=== PATIENT | male | born 1955 | race American Indian/Alaskan Native ===

== ENCOUNTER 2018-09-22 17:32 | Inpatient (IN) | payer MEDICARE, OTHER ==
[2018-09-22] MEDS ORDERED: D50W (25GM) Syringe IV PRN (22:11)
[2018-09-22] MEDS: PEPCID PO SCH (23:16)
--- NOTE | 2018-09-22 23:56 | Event Note ---
Date: 09/22/[address] Carlson service Orders reviewed
[2018-09-23 05:09] LABS: Basophils % (Auto) 0.8 % (0.0-1.8); Eosinophils # (Auto) 0.2 K/mm3 (0.0-0.4); Eosinophils % (Auto) 3.4 % (0.0-4.3); Hematocrit 44.1 % (35.5-45.6); Hemoglobin 14.4 gm/dl (11.8-15.2); Lymphocytes # (Auto) 1.9 K/mm3 (1.2-5.4); Lymphocytes % (Auto) 33.9 % (13.4-35.0); Mean Corpuscular HGB Conc 33 % (32-34); Mean Corpuscular Volume 93 fl (84-94); Monocytes # (Auto) 0.6 K/mm3 (0.0-0.8); Monocytes % (Auto) 9.9 % (0.0-7.3); Red Blood Count 4.77 M/mm3 (3.65-5.03); Red Cell Distribution Width 15.6 % (13.2-15.2)
[2018-09-23 05:18] LABS: Platelet Count 68 K/mm3 (140-440)
[2018-09-23 05:23] LABS: INR 0.9 (0.87-1.13)
[2018-09-23 05:31] LABS: BUN/Creatinine Ratio 22; Blood Urea Nitrogen 13 mg/dL (9-20); Calcium 8.9 mg/dL (8.4-10.2)
[2018-09-23 05:32] LABS: Hemolysis Index 35
[2018-09-23] MEDS: ENTRESTO 24 - 26 MG PO SCH ×3 (05:51→22:29)
[2018-09-23] MEDS: HumaLOG SUB-Q SCH ×4 (08:00→22:21)
[2018-09-23] MEDS: LASIX PO SCH (09:32)
[2018-09-23] MEDS: HALFPRIN EC PO SCH (09:32)
[2018-09-23] MEDS: ALDACTONE PO SCH (09:32)
[2018-09-23] MEDS: PEPCID PO SCH ×2 (09:32→22:20)
[2018-09-23] MEDS: LOVENOX SUB-Q SCH ×2 (09:33→22:20)
[2018-09-23] MEDS ORDERED: COUMADIN PO SCH (10:00)
--- NOTE | 2018-09-23 11:15 | History and Physical Report ---
History of Present Illness Date: 09/23/18 Date of admission: 09/22/18 18:49 Chief Complaint: CVA History of present illness: 62 yo male with right sided weakness and slurred speech went to ER and was found to have multiple acute left infarcts and a few smaller right sided infarcts on MRI brain. Echo showed 15-20% EF with moderate concentric hypertrophy and a dilated chamber. Neck CTA showed 90-95% stenosis on left carotid bulb and internal carotid artery. Decision was made to anticoagulate and monitor vs intervention. He was started on heparin drip and transferred to [facility] and coumadin on day of transfer. After he was medically stabilized he was transferred for further rehab. All available notes, images, therapy notes, labs and vitals were reviewed. Past History Past Medical History: heart failure, hypertension, other (CKD, RA, hyperglycemia, cardiomyopathy, cirrhosis) Past Surgical History: No surgical history Social history: lives with family, smoking (former), full code, other (Former EtOH use, Denies illicit drug use) Family history: hypertension Medications and Allergies Allergies Allergy/AdvReac Type Severity Reaction Status Date / Time No Known Allergies Allergy Unverified 09/16/18 03:39 Home Medications Medication Instructions Recorded Confirmed Last Taken Type Tamsulosin HCl 0.4 mg PO QHS 09/17/18 09/23/18 09/22/18 21:00 History 0.4 Aspirin EC [Aspirin Enteric Coated 81 mg PO QDAY #30 tablet. 09/22/18 09/23/18 Unknown Rx TAB] AtorvaSTATin [Lipitor] 40 mg PO QHS tablet 09/22/18 09/23/18 Unknown Rx Enoxaparin Sodium [Lovenox] 100 mg SQ BID 7 Days syringe 09/22/18 09/23/18 Unknown Rx Famotidine [Pepcid] 20 mg PO BID tablet 09/22/18 09/23/18 Unknown Rx Furosemide [Lasix TAB] 40 mg PO QDAY tablet 09/22/18 09/23/18 Unknown Rx Lispro Insulin [Humalog] 0 unit SUB-Q ACHS units 09/22/18 09/23/18 Unknown Rx Metoprolol Xl [Metoprolol 50 mg PO QDAY tablet 09/22/18 09/23/18 Unknown Rx SUCCINATE ER TAB] Sacubitril/Valsartan [Entresto 24 4 each PO BID 30 Days tablet 09/22/18 09/23/18 Unknown Rx - 26 mg] Spironolactone [Aldactone] 25 mg PO QDAY 30 Days tablet 09/22/18 09/23/18 Unknown Rx Active Meds: Active Medications Aspirin (Halfprin Ec) 81 mg PO QDAY [facility] Last Admin: 09/23/18 09:32 Dose: 81 mg Documented by: Atorvastatin Calcium (Lipitor) 40 mg PO QHS [facility] Dextrose (D50w (25gm) Syringe) 50 ml IV PRN PRN PRN Reason: Hypoglycemia Enoxaparin Sodium (Lovenox) 100 mg SUB-Q BID [facility] Last Admin: 09/23/18 09:33 Dose: 100 mg Documented by: Famotidine (Pepcid) 20 mg PO BID [facility] Last Admin: 09/23/18 09:32 Dose: 20 mg Documented by: Furosemide (Lasix) 40 mg PO QDAY [facility] Last Admin: 09/23/18 09:32 Dose: 40 mg Documented by: Insulin Human Lispro (Humalog) 0 unit SUB-Q [facility]; Protocol Last Admin: 09/23/18 08:00 Dose: Not Given Documented by: Metoprolol Succinate (Toprol Xl) 50 mg PO QDAY [facility] Pneumococcal Polyvalent Vaccine (Pneumovax 23) 0.5 ml IM .ONCE ONE Stop: 09/23/18 12:01 Spironolactone (Aldactone) 25 mg PO QDAY [facility] Last Admin: 09/23/18 09:32 Dose: 25 mg Documented by: Tamsulosin HCl (Flomax) 0.4 mg PO QHS [facility] Warfarin Sodium (Coumadin) 7.5 mg PO DAILY@1700 [facility] Review of Systems All systems: negative (Negative except as noted below) Constitutional: weakness Ears, nose, mouth and throat: decreased hearing, no dysphagia Cardiovascular: no chest pain, no rapid/irregular heart beat, no shortness of breath Respiratory: no cough, no congestion Gastrointestinal: no abdominal pain, no nausea, no vomiting, no diarrhea, no constipation Genitourinary Male: incontinence Rectal: incontinence Musculoskeletal: gait dysfunction Integumentary: unusual bruising (heparin IV sites), no rash Neurological: change in speech, balance difficulties, gait dysfunction, paralysis Psychiatric: no confusion, no sadness/tearfullness, no mood swings Exam - Exam Narrative exam: MUSCULOSKELETAL SPECIALTY EXAM Constitutional: Well developed, well nourished, appropriately groomed, RHD Lymphatic: No appreciable abnormalities palpable in neck EENT: Visual carter full to confrontation. EOMI. Oropharynx clear. Hearing intact to finger rustle, slightly impaired on left (uncertain if prior issue) Respiratory: Clear to ascultation bilaterally, no increased work of breathing. Cardiovascular Regular Rate/ Rhythm, no swelling edema or tenderness in all 4 extremities. Pulses palpable in all 4 extremities. All 4 extremities warm. GI : + bowel sounds, soft, NTTP, nondistended INTEGUMENTARY Normal in all 4 extremities other than bruising from IVs Musuloskeletal BUE and BLE normal without defect, crepitus, sublux, effusion, or TTP. Noted LUE hematoma - monitor RUE 0/5 except for slight movement in digits 1& 2 decreased aROM. RLE 4-/5, good ROM LUE and LLE 4+/5, good ROM with normal tone. NEURO: Right facial droop, CN 2-12 grossly intact otherwise. Sensation intact in all extremities without extinction. Reflexes 3+ on right on 2+ on left at biceps, brachioradialis and patella. No clonus at b/l ankle. Coordination intact on left, unable to test on right. No tremor noted. Mild aphasia and dysarthria. Naming and repetition intact with some mild word searching during conversation. POSTURE and GAIT: Deferred until seen with therapy for safety PSYCH: Alert, orientated x3, affect appears slightly flattened. Insight appears intact. - Constitutional Vitals: Vital Signs - 12hr 09/23/18 09/23/18 00:19 07:29 Temperature 36.4 C 36.8 C Pulse Rate 73 82 Respiratory 22 18 Rate Blood Pressure 167/101 146/89 O2 Sat by Pulse 96 98 Oximetry - Labs CBC & Chem 7: 09/23/18 04:35 09/23/18 04:35 Labs: Laboratory Results - last 72 hr 09/22/18 09/23/18 09/23/18 21:42 04:35 04:35 WBC 5.7 RBC 4.77 Hgb 14.4 Hct 44.1 MCV 93 MCH 30 MCHC 33 RDW 15.6 H Plt Count 68 L Lymph % (Auto) 33.9 [place] % (Auto) 9.9 H Eos % (Auto) 3.4 Baso % (Auto) 0.8 Lymph # 1.9 [place] # 0.6 Eos # 0.2 Baso # 0.0 Seg Neutrophils % 52.0 Seg Neutrophils # 3.0 PT INR Sodium 138 Potassium 3.8 Chloride 104.7 Carbon Dioxide 25 Anion Gap 12 BUN 13 Creatinine 0.6 L Estimated GFR > 60 BUN/Creatinine Ratio 22 Glucose 90 POC Glucose 126 H Calcium 8.9 09/23/18 09/23/18 04:35 07:31 WBC RBC Hgb Hct MCV MCH MCHC RDW Plt Count Lymph % (Auto) [place] % (Auto) Eos % (Auto) Baso % (Auto) Lymph # [place] # Eos # Baso # Seg Neutrophils % Seg Neutrophils # PT 12.5 INR 0.90 Sodium Potassium Chloride Carbon Dioxide Anion Gap BUN Creatinine Estimated GFR BUN/Creatinine Ratio Glucose POC Glucose 92 Calcium Assessment and Plan Assessment and plan: Patient was assessed and evaluated for Acute Inpatient Rehab Unit. Due to the patients above-mentioned medical complexity, along with decreased functional mobility and self care, this patient continues to require and be appropriate for a comprehensive, multidisciplinary [id number] rehab ilitation program. These needs cannot be met in an outpatient or other less intensive setting. The patient would continue to benefit from skilled therapy intervention for at least 3 hours per day, five days a week, with techniques specific to the needs of the patient to improve function, activities of daily living, and reintegration into the community. The patient continues to require: -- OT to improve ROM, self-care, and learn use of adaptive equipment -- PT to improve strength and balance, functional transfers, and ambulation -- BANANA EXPERT to evaluate and treat cognitive decline and dysphagia -- 24 hour RN to ensure and prevent skin breakdown, promote progressive independence while ensuring safety, ensure education regarding medications, and incorporation of the rehabilitation at the bedside -- 24 hour Warehouse Operations Associate to coordinate this interdisciplinary program, and to manage/prevent complications as a result of the patients medical comorbidities. -Plan of care by day 4 -Weekly team conferences With such a program, there is a reasonable certainty that the goals individualized for this patient can be achieved within the specified length of stay. I69.351 Right dom hemiparesis: Monitor for neuro decline. Continue secondary stroke prevention. Discussed recovery and secondary stroke prevention. Monitor for post-stroke depression and s/s of shoulder-hand syndrome. I69.310 Cognitive deficits after CVA: BANANA EXPERT to monitor and provide strategies for compensation, family training for increased monitoring. I69.321 Dysphasia: BANANA EXPERT to continue to work to improve communication skills with alternate methods as needed I69.322 Dysarthria: BANANA EXPERT to work with strategies to improve NM control while speaking Z73.6 ADL dysfunction: OT will work on improving ability to perform ADLs (including assistive devices) to increase independence and decrease caregiver burden and improve functional transfers and mobility training. R26.2 Difficulty walking: PT will work on gait training and proper use of as sistive devices and advance as appropriate to use of stairs and outside ambulation on uneven surfaces. R26.81 Unsteadiness on feet: PT will work on improving static and dynamic sitting and standing balance as well as proper use of assistive devices to decrease risk of falls. R26.89 Abnormality of gait: PT will work to improve safety and efficiency of gait through neuromotor training and gait training along with instruction on proper use of assistive devices. M62.81 Muscle weakness: PT & OT will work on strengthening exercises to improve functional strength including mixture of closed and open kinetic chain exercises. R53.81 Debility: PT & OT will work on improving overall functional status to improve participation with ADLs, mobility and social involvement. R53.83 Fatigue: PT & OT will work on improving endurance through aerobic exercises and therapeutic activity while monitoring patients tolerance for activity and vital signs as needed. I10 Hypertension:Monitor BP and adjust medications as needed for normotension Z79.01 Coumadin monitoring: Goal INR 2-3, continue lovenox until therapeutic. Heparin drip d/c'd at admission. DVT ppx: on lovenox awaiting therapeutic INR Pain: Continue physical modalities in therapy and pain medications as needed to achieve functional pain control. Sleep: Monitor and address as needed. Bowel: Monitor and address as needed. Appetite: Monitor and address as needed. Discharge planning: Pending therapy progress and care plan meeting. Justyn castillo discussion with therapy team, SW, patient and family. Restrictions/ Precautions: Falls WB status: FWB Functional Hx: ADLs: Independent Cognition: Independent Mobility: independent Barriers to Discharge: Decreased mobility and ability to perform self care, right sided weakness, slight aphasia, balance deficits Estimated Length of Stay: 14-21 days Discharge Destination: Home with family POST ADMISSION PHYSICIAN EVALUATION I have examined the patient and find that his functional status, medical condition and appropriateness for IRF admission are essentially unchanged from those described in the preadmission screening. Will monitor for worsening neurological condition, complications due to hypertension and hyperglycemia, worsening cardiac function, CKD and complication of liver function and electrolyte abnormalities. Will attempt to avoid occurrence of these issues or treat them if they present themselves.
[2018-09-23] MEDS ORDERED: PNEUMOVAX 23 IM ONE (12:00)
[2018-09-23] MEDS: TOPROL XL PO SCH (12:41)
[2018-09-23] MEDS ORDERED: DULCOLAX PR PRN (14:42)
[2018-09-23] MEDS ORDERED: MIRALAX 3350 PO PRN (14:42)
[2018-09-23] MEDS ORDERED: TYLENOL PO PRN (14:42)
[2018-09-23] MEDS: COUMADIN PO SCH (17:03)
[2018-09-23] MEDS ORDERED: NON-FORMULARY (Tamsulosin Hcl 0.4 MG) PO SCH (21:00)
[2018-09-23] MEDS: FLOMAX PO SCH (22:20)
[2018-09-23] MEDS: DESYREL PO PRN (22:28)
[2018-09-24 07:16] LABS: INR 1.02 (0.87-1.13)
[2018-09-24] MEDS: HumaLOG SUB-Q SCH ×4 (08:30→21:29)
[2018-09-24] MEDS: ENTRESTO 24 - 26 MG PO SCH ×2 (09:02→21:28)
[2018-09-24] MEDS: HALFPRIN EC PO SCH (09:04)
[2018-09-24] MEDS: LOVENOX SUB-Q SCH ×2 (09:04→21:28)
[2018-09-24] MEDS: ALDACTONE PO SCH (09:04)
[2018-09-24] MEDS: PEPCID PO SCH ×2 (09:04→21:28)
[2018-09-24] MEDS: TOPROL XL PO SCH (12:30)
[2018-09-24] MEDS: LASIX PO SCH (12:31)
[2018-09-24] MEDS: COUMADIN PO SCH (17:07)
[2018-09-24] MEDS: FLOMAX PO SCH (21:28)
[2018-09-24] MEDS: DESYREL PO PRN (21:31)
[2018-09-25 04:47] LABS: INR 1.22 (0.87-1.13)
[2018-09-25] MEDS: HumaLOG SUB-Q SCH ×4 (08:00→22:00)
[2018-09-25] MEDS: LOVENOX SUB-Q SCH ×2 (09:12→22:39)
[2018-09-25] MEDS: LASIX PO SCH (09:13)
[2018-09-25] MEDS: ENTRESTO 24 - 26 MG PO SCH ×2 (09:13→22:45)
[2018-09-25] MEDS: ALDACTONE PO SCH (09:14)
[2018-09-25] MEDS: HALFPRIN EC PO SCH (09:14)
[2018-09-25] MEDS: PEPCID PO SCH ×2 (09:14→22:39)
[2018-09-25] MEDS: TOPROL XL PO SCH (09:14)
[2018-09-25] MEDS: COUMADIN PO SCH (17:56)
[2018-09-25] MEDS: FLOMAX PO SCH (22:38)
--- NOTE | 2018-09-25 23:10 | IRU Plan of Care ---
Interdisciplinary Plan of Care - IP IRU INTERDISCIPLINARY PLAN: [facility] Inpatient Rehab Unit Plan of Care IRU Interdisciplinary Care Plan Start: 09/22/18 20:07 Freq: Admission then PRN Status: Active Protocol: Document 09/25/18 09:22 TH (Rec: 09/25/18 09:25 TH [id number]) Interdisciplinary Problem List Interdisciplinary Problem List Interdisciplinary Problem List Impaired Bathing/Grooming Query Text:Answers will Trigger Problems Impaired Dressing and Outcomes on Worklist. Impaired Mobility Impaired Transfers Impaired Bladder/Bowel Management Impaired Toileting Impaired Problem Solving Knowledge Deficits Impaired Home Management Impaired Safety Medications Education Diabetes Education IRU Interdisciplinary Care Plan Therapy Services Therapy Services Will Include: Physical Therapy Query Text:Patient will be seen for a Occupational Therapy minimum of 3 hours of daily therapy 5 out of 7 days a week. Therapy intensity may be adjusted within a 7 consecutive day period to effectively serve the individual needs of the patient. Treatment Frequency/Intensity/Duration Treatment Frequency 5 days per week Treatment Intensity 3 hours/day Treatment Duration 14-21 days Problem Area: Eating/Swallowing Eating/Swallowing Outcomes Eating/Swallowing Interventions Problem Area: Bathing/Grooming Bathing/Grooming Outcomes Improve [place] w/ Grooming Improve [place] w/ Bathing Bathing/Grooming Interventions ADL Training Use of Assistive Devices Therapeutic Exercise Therapeutic Activity Neuromuscular Re-Education Balance Work Activity Tolerance Work Patient/Caregiver Education Problem Area: Dressing Dressing Outcomes Improve [place] w/ UB Dressing Improve [place] w/ LB Dressing Dressing Interventions ADL Training Use of Assistive Devices Neuromuscular Re-Education Therapeutic Exercise Balance Work Modalities Patient/Caregiver Education Problem Area: Mobility Mobility Outcomes Improve [place] w/ Bed Mobility Improve [place] w/ Ambulation Improve [place] w/ Stairs /Curb Improve [place] w/ Wheelchair Mobility Interventions Therapeutic Exercise Neuromuscular Re-Ed. Activity Tolerance Work Use of Assistive Devices Patient/Caregiver Education Bed Mobility Work Gait Training W/C Mobility Work Problem Area: Transfers Transfers Outcomes Improve [place] w/ Bed Transfers Improve [place] w/ Toilet Transfers Improve [place] w/ Tub/ Shower Transfers Improve [place] w/ Car Transfers Transfers Interventions Transfer Training Therapeutic Exercise Neuromuscular Re-Education Activity Tolerance Work Use of Assistive Devices Patient/Caregiver Education Problem Area: Bowel/Bladder Managment Bowel/Bladder Outcomes Continent of Bladder Continent of Bowel Bowel/Bladder Interventions Bowel Training Program Use of Assistive Devices Education for Assistive Devices (Ostomy, Cath) Medication Education Patient/Caregiver Education Problem Area: Toileting Toileting Outcomes Improve [place] w/ Toileting Toileting Interventions ADL Training Patient/Caregiver Education Problem Area: Nutrition Nutrition Outcomes Nutrition Interventions Problem Area: Comprehension Comprehension Outcomes Comprehension Interventions Problem Area: Expression Expression Outcomes Expression Interventions Problem Area: Problem Solving Problem Solving Outcomes Improve Problem Solving Problem Solving Interventions Safety Education Patient/Caregiver Education Problem Area: Memory Memory Outcomes Use Memory Aids Memory Interventions Cognitive Training Review of Precautions Patient/Caregiver Education Problem Area: Pain Management Pain Management Outcomes Demonstrate/Verbalize Pain Strategies Pain Management Interventions Medication Management Patient/Caregiver Education Problem Area: Knowledge Deficits Knowledge Deficits Outcomes Verbalize Precautions Knowledge Deficits Interventions Disease/Injury/Sx. Intervention Education Medication Use Education Disease Management Education Health Maintainence Education Safety Education Problem Area: Skin/Tissue Integrity Skin/Tissue Integrity Outcomes Demonstrate Understanding of Pressure Relief Skin/Tissue Integrity Interventions Pressure Relief Instruction Positioning/Turning Problem Area: Social Interaction Social Interaction Outcomes Social Interaction Interventions Problem Area: Adjustment to Disability Adjustment to Disability Outcomes Adjustment to Disability Interventions Problem Area: Discharge Concerns Discharge Concerns Outcomes Discharge Concerns Interventions Problem Area: Community Reintegration Community Reintegration Outcomes Community Reintegration Interventions Problem Area: Home Management Home Management Outcomes Improve [place] w/ Home Management Home Management Interventions Clothing Care Activity Tolerance Work Patient/Caregiver Education Problem Area: Safety Safety Outcomes Provide Safe Environment Perform Selfcare Safely Demonstrate Good Safety w/ Transfers/Mobility Safety Interventions Identify Fall Risk [place] Pt. to Environment Reduce Environmental Hazards Implement Mechanical Devices, i.e. Chair Alarm (Post Fall Update) Re-Educate Patient/Caregiver for Safety (Post Fall Update) Problem Area: Medication Education Medication Education Outcomes Patient/Caregiver will Verbalize Understanding of Medications Medication Education Interventions Explain Administration/Side Effects/Interactions Problem Area: Diabetes Education Diabetes Education Outcomes Demonstrate Knowledge of Resources Availlable in Diabetic Ed. Folder Diabetes Education Interventions Give Pt. Diabetes Education Folder Discuss Pathophysiology of Diabetes Problem Area: Oxygenation Oxygenation Outcomes Oxygenation Interventions Problem Area: Cardiovascular Cardiovascular Outcomes Cardiovascular Interventions Physician Only Medical Prognosis and Rehabilitation Potential (Completed by Physician) Fair prognosis. Will continue to monitor and treat for CVA related issues including hemiparesis, ADL dysfunction, bowel and bladder dysfunction, and mobility dysfunction. Will monitor and adjust medications as needed for treatment of medical conditions and look to reduce impact of those conditions on participation in rehabilitation. Patient is at risk for cardiac decompensation, repeat embolus, and bleeding. This plan of care has been developed based on the findings from the pre- admission assessment, post admission physician evaluation, information gathered from the assessments from all therapy disciplines and other pertinent clinicians. The plan of care has been reviewed and discussed in collaboration with the interdisciplinary team. The plan of care will be reviewed and updated at least weekly.
[2018-09-26 05:03] LABS: INR 1.59 (0.87-1.13)
--- NOTE | 2018-09-26 09:50 | Progress Note ---
Subjective Date of service: 09/26/18 Principal diagnosis: CVA Interval history: 62 yo male with CVA (right sided weakness UE>LE) found to have multiple acute left infarcts and a few smaller right sided infarcts on MRI brain. Echo showed 15-20% EF with moderate concentric hypertrophy and a dilated chamber. Neck CTA showed 90-95% stenosis on left carotid bulb and internal carotid artery. Having multiple stools. Not c/w c diff. Sensation is improved and he states he now recognizes the urge to urinate and defecate. Not wearing condom cath. Will have nursing utilize toilet instead of bedpan. Discussed elevated A1c. Reviewed labs and his LFTs and coags were normal on presentation. Will start on low dose metformin and monitor. INR still subtherapeutic. Not picked up by CONFECTIONERY MAKER, dysarthria and dysphasia both very mild. All available notes, images, therapy notes, labs and vitals were reviewed. Objective - Exam Narrative Exam: MUSCULOSKELETAL SPECIALTY EXAM Constitutional: Well developed, well nourished, appropriately groomed, RHD EENT: EOMI. Hearing intact to finger rustle, slightly impaired on left (uncertain if prior issue) Respiratory: Clear to ascultation bilaterally, no increased work of breathing. Cardiovascular Regular Rate/ Rhythm, no swelling edema or tenderness in all 4 extremities. All 4 extremities warm. GI : + bowel sounds, soft, NTTP, nondistended INTEGUMENTARY Normal in all 4 extremities other than bruising from IVs Musuloskeletal BUE and BLE normal without defect, crepitus, sublux, effusion, or TTP. Noted LUE hematoma stable - monitor RUE 0/5 except for slight movement in digits 1& 2 decreased aROM. RLE 4-/5, good ROM LUE and LLE 4+/5, good ROM with normal tone. NEURO: Right facial droop, CN 2-12 grossly intact otherwise. Sensation intact in all extremities without extinction. No tremor noted. Mild dysarthria. Naming and repetition intact with some mild word searching during conversation. POSTURE and GAIT: Walking with SPC, able to navigate stairs with assistance. Posture fair PSYCH: Alert, orientated x3, affect appears slightly flattened. Insight appears intact. - Constitutional Vitals: Vital Signs - 12hr 09/25/18 09/26/18 09/26/18 23:57 04:03 08:40 Temperature 36.6 C 36.8 C 36.4 C Pulse Rate 69 81 73 Respiratory 18 18 18 Rate Blood Pressure 131/85 129/81 Blood Pressure 159/94 [Left] O2 Sat by Pulse 98 96 96 Oximetry - Allied health notes Allied health notes reviewed: nursing, PT, OT FIMS assessment as documented by PT/OT/ST: Grooming Patient cleans teeth/dentures: Yes Patient tellez/brushes hair: Yes Patient washes, rinses and Yes dries face: Patient performs (no make-up/ 3/4 (75%) shaving): Grooming FIM Score 4. Minimal Assistance (Patient = 75% or more. Needs touching.) Toileting Toileting Device Commode over Toilet Patient able to: Adjust clothes before,Adjust clothes after Patient able to perform: 1/3 (33%) Toileting FIM Score 1. Total Assistance (Patient less than 25%. 2 or more persons.) Social interaction/Memory/Problem solving Social Interaction FIM Score 6. Mod. [place] (Mostly appropriate. May need meds. No supv.) Memory FIM Score 5. Supervision (Needs cueing <10%, stressful/ unfamiliar situations.) Problem Solving FIM Score 4. Minimal Assistance (Solves routine problems 75-90%.) Transfers Mode of Locomotion: Wheelchair Bed/Chair/Wheelchair Transfers 4. Minimal Assistance (Patient = 75% or more. FIM Score Needs touching.) Toilet Transfers FIM Score 4. Minimal Assistance (Patient = 75% or more. Needs touching.) Patient transferred to: Shower Shower Transfers FIM Score 4. Minimal Assistance (Patient = 75% or more. Needs touching.) Locomotion- Stairs Device used on Stairs Handrail/s Number of Stairs Ascended/ 4 Descended Patient used handrail/support: Yes Stairs FIM Score 2. Maximal Assistance (Patient = 25% or more, 4- 6 stairs.) Locomotion- walk/wheelchair Most Frequent Mode of Wheelchair Locomotion: Ambulation Distance 170 Walking FIM Score 4. Minimal Assistance (Patient = 75% or more. Minimum of 150 ft.) Wheelchair Propulsion Distance 127 Wheelchair FIM Score 2. Maximal Assistance (Patient = 25% or more. Minimum of 50 ft.) Eating Eating FIM Score 5. Supervision/Set-Up (Needs help w/ co ntainers, cutting meat, etc.) Dressing-Upper body Patient retrieves clothing No items: Patient applies/removes UE Yes: sling and arm troph prosthesis or orthosis: Upper Body Dressing FIM Score 4. Minimal Assistance (Patient = 75% or more. Needs touching.) Dressing-lower body Patient retrieves clothing No items: Patient applies/removes LE n/a prosthesis or orthosis: Lower Body Dressing FIM Score 2. Maximal Assistance (Patient = 25% or more) - Labs CBC & Chem 7: 09/23/18 04:35 09/23/18 04:35 Labs: Laboratory Results - last 72 hr 09/23/18 09/23/18 09/23/18 12:07 16:30 17:23 PT INR POC Glucose 164 H 61 L 140 H 09/23/18 09/24/18 09/24/18 21:19 03:52 06:45 PT 13.8 INR 1.02 POC Glucose 66 L 95 09/24/18 09/24/18 09/24/18 07:46 12:05 16:12 PT INR POC Glucose 96 167 H 192 H 09/24/18 09/25/18 09/25/18 21:31 04:22 07:16 PT 15.8 H INR 1.22 H POC Glucose 105 89 09/25/18 09/25/18 09/25/18 12:34 16:02 22:00 PT INR POC Glucose 71 130 H 157 H 09/26/18 09/26/18 04:04 08:49 PT 19.4 H INR 1.59 H POC Glucose 133 H Assessment and Plan I69.351 Right dom hemiparesis: Monitor for neuro decline. Continue secondary stroke prevention. Discussed recovery and secondary stroke prevention. Monitor for post-stroke depression and s/s of shoulder-hand syndrome. I69.310 Cognitive deficits after CVA: Improving. CONFECTIONERY MAKER did not sweet pickle maker patient I69.321 Dysphasia: Improving, CONFECTIONERY MAKER did not sweet pickle maker patient I69.322 Dysarthria: Improving Z73.6 ADL dysfunction: OT will work on improving ability to perform ADLs (including assistive devices) to increase independence and decrease caregiver burden and improve functional transfers and mobility training. R26.2 Difficulty walking: PT will work on gait training and proper use of assistive devices and advance as appropriate to use of stairs and outside ambulation on uneven surfaces. R26.81 Unsteadiness on feet: PT will work on improving static and dynamic sitting and standing balance as well as proper use of assistive devices to decrease risk of falls. R26.89 Abnormality of gait: PT will work to improve safety and efficiency of gait through neuromotor training and gait training along with instruction on proper use of assistive devices. M62.81 Muscle weakness: PT & OT will work on strengthening exercises to improve functional strength including mixture of closed and open kinetic chain exercises. R53.81 Debility: PT & OT will work on improving overall functional status to improve participation with ADLs, mobility and social involvement. R53.83 Fatigue: PT & OT will work on improving endurance through aerobic exercises and therapeutic activity while monitoring patients tolerance for activity and vital signs as needed. I10 Hypertension:Monitor BP and adjust medications as needed for normotension Z79.01 Coumadin monitoring: Goal INR 2-3, continue lovenox until therapeutic. Heparin drip d/c'd at admission. E11.9 Diabetes: Hgb A1c 6.7, POC have been elevated. Rec recheck A1c in 3mos. Start Metformin and monitor. Reported hx of cirrhosis (LFT and coags normal) and CKD (BUN/Cr and GFR normal) - monitor closely. DVT ppx: on lovenox awaiting therapeutic INR Pain: Continue physical modalities in therapy and pain medications as needed to achieve functional pain control. Sleep: Monitor and address as needed. Bowel: Monitor and address as needed. Appetite: Monitor and address as needed. Discharge planning: Pending therapy progress and care plan meeting. Will continue discussion with therapy team, SW, patient and family. Restrictions/ Precautions: Falls WB status: FWB Functional Hx: ADLs: Independent Cognition: Independent Mobility: independent Barriers to Discharge: Decreased mobility and ability to perform self care, right sided weakness, slight aphasia, balance deficits Estimated Length of Stay: 14-21 days Discharge Destination: Home with family
[2018-09-26] MEDS: HumaLOG SUB-Q SCH ×4 (10:47→23:17)
[2018-09-26] MEDS: TOPROL XL PO SCH (11:34)
[2018-09-26] MEDS: HALFPRIN EC PO SCH (11:35)
[2018-09-26] MEDS: LOVENOX SUB-Q SCH ×2 (11:35→21:22)
[2018-09-26] MEDS: ALDACTONE PO SCH (11:35)
[2018-09-26] MEDS: LASIX PO SCH (11:35)
[2018-09-26] MEDS: PEPCID PO SCH ×2 (11:35→21:23)
[2018-09-26] MEDS: ENTRESTO 24 - 26 MG PO SCH ×2 (11:41→23:23)
[2018-09-26] MEDS: GLUCOPHAGE PO SCH (17:46)
[2018-09-26] MEDS: COUMADIN PO SCH (17:47)
[2018-09-26] MEDS: FLOMAX PO SCH (21:23)
[2018-09-27 04:48] LABS: INR 1.98 (0.87-1.13)
[2018-09-27] MEDS: HumaLOG SUB-Q SCH ×4 (07:40→22:33)
[2018-09-27] MEDS: ENTRESTO 24 - 26 MG PO SCH ×2 (08:17→21:05)
[2018-09-27] MEDS: LOVENOX SUB-Q SCH ×2 (08:18→21:06)
[2018-09-27] MEDS: TOPROL XL PO SCH (08:18)
[2018-09-27] MEDS: GLUCOPHAGE PO SCH ×2 (08:18→17:56)
[2018-09-27] MEDS: HALFPRIN EC PO SCH (08:18)
[2018-09-27] MEDS: ALDACTONE PO SCH (08:18)
[2018-09-27] MEDS: PEPCID PO SCH ×2 (08:18→21:05)
[2018-09-27] MEDS: LASIX PO SCH (08:18)
[2018-09-27] MEDS: COUMADIN PO SCH (17:56)
[2018-09-27] MEDS: FLOMAX PO SCH (21:05)
[2018-09-28 06:21] LABS: Hematocrit 43.6 % (35.5-45.6); Hemoglobin 14.4 gm/dl (11.8-15.2); Mean Corpuscular HGB Conc 33 % (32-34); Mean Corpuscular Volume 92 fl (84-94); Platelet Count 101 K/mm3 (140-440); Red Blood Count 4.74 M/mm3 (3.65-5.03); Red Cell Distribution Width 15.6 % (13.2-15.2)
[2018-09-28 06:33] LABS: INR 2.59 (0.87-1.13)
[2018-09-28] MEDS: TOPROL XL PO SCH (08:35)
[2018-09-28] MEDS: HALFPRIN EC PO SCH (08:36)
[2018-09-28] MEDS: ALDACTONE PO SCH (08:36)
[2018-09-28] MEDS: LASIX PO SCH (08:36)
[2018-09-28] MEDS: LOVENOX SUB-Q SCH (08:36)
[2018-09-28] MEDS: ENTRESTO 24 - 26 MG PO SCH ×2 (08:36→23:42)
[2018-09-28] MEDS: PEPCID PO SCH ×2 (08:36→22:27)
[2018-09-28] MEDS: GLUCOPHAGE PO SCH ×2 (08:40→17:56)
[2018-09-28] MEDS: HumaLOG SUB-Q SCH ×4 (08:40→22:31)
--- NOTE | 2018-09-28 09:30 | Progress Note ---
Subjective Date of service: 09/28/18 Principal diagnosis: CVA Interval history: 62 yo male with CVA (right sided weakness UE>LE) found to have multiple acute left infarcts and a few smaller right sided infarcts on MRI brain. Echo showed 15-20% EF with moderate concentric hypertrophy and a dilated chamber. Neck CTA showed 90-95% stenosis on left carotid bulb and internal carotid artery. Stool volume and consistency improved, tolerating toilet toilet better than bedpan. Called yesterday about POC of 46 - pt was asymptomatic and lab GLU was 86. Tolerating Metformin, will continue to monitor GLU and LFT to be drawn 09/30. INR therapeutic, decreased dose of coumadin to 5mg, may overshoot due to velocity of increase in INR, will monitor and adjust as needed. D/C'd lovenox. Discussed in Team Conference - doing well, will look to d/c early next week on 10/03 if he continues on current trajectory. All available notes, images, therapy notes, labs and vitals were reviewed. Objective - Exam Narrative Exam: MUSCULOSKELETAL SPECIALTY EXAM Constitutional: Well developed, well nourished, appropriately groomed, RHD EENT: EOMI. Hearing intact to finger rustle, slightly impaired on left (uncertain if prior issue) Respiratory: Clear to ascultation bilaterally, no increased work of breathing. Cardiovascular Regular Rate/ Rhythm, no swelling edema or tenderness in all 4 extremities. All 4 extremities warm. GI : + bowel sounds, soft, NTTP, nondistended INTEGUMENTARY Normal in all 4 extremities other than bruising from IVs Musuloskeletal BUE and BLE normal without defect, crepitus, sublux, effusion, or TTP. Noted LUE hematoma stable - monitor RUE improving 3-/5 decreased aROM. RLE 4-/5, good ROM LUE and LLE 4+/5, good ROM with normal tone. NEURO: Right facial droop, CN 2-12 grossly intact otherwise. Sensation intact in all extremities without extinction. LUE slight intention tremor noted. Mild dysarthria improving. Naming and repetition intact with some mild word searching during conversation. POSTURE and GAIT: Walking with SPC, able to navigate stairs with assistance. Posture fair PSYCH: Alert, orientated x3, affect improved. Insight appears intact. - Constitutional Vitals: Vital Signs - 12hr 09/27/18 09/28/18 09/28/18 22:00 05:24 06:04 Temperature 36.9 C 36.9 C Pulse Rate 81 81 Respiratory 17 17 Rate Respiratory 17 Rate [Denies] Blood Pressure Blood Pressure 118/75 118/75 [Left] O2 Sat by Pulse 97 94 94 Oximetry 09/28/18 07:26 Temperature 36.6 C Pulse Rate 79 Respiratory 18 Rate Respiratory Rate [Denies] Blood Pressure 118/73 Blood Pressure [Left] O2 Sat by Pulse 93 Oximetry - Allied health notes Allied health notes reviewed: nursing, PT, OT FIMS assessment as documented by PT/OT/ST: Grooming Patient cleans teeth/dentures: Yes Patient tellez/brushes hair: Yes Patient washes, rinses and Yes dries face: Patient performs (no make-up/ 3/4 (75%) shaving): Grooming FIM Score 4. Minimal Assistance (Patient = 75% or more. Needs touching.) Toileting Toileting Device Commode over Toilet Patient able to: Adjust clothes before,Adjust clothes after Patient able to perform: 1/3 (33%) Toileting FIM Score 1. Total Assistance (Patient less than 25%. 2 or more persons.) Social interaction/Memory/Problem solving Social Interaction FIM Score 6. Mod. [place] (Mostly appropriate. May need meds. No supv.) Memory FIM Score 5. Supervision (Needs cueing <10%, stressful/ unfamiliar situations.) Problem Solving FIM Score 4. Minimal Assistance (Solves routine problems 75-90%.) Transfers Mode of Locomotion: Wheelchair Bed/Chair/Wheelchair Transfers 5. Supervision (Needs supv. or set-up for FIM Score sliding board, foot rests.) Toilet Transfers FIM Score 4. Minimal Assistance (Patient = 75% or more. Needs touching.) Patient transferred to: Shower Shower Transfers FIM Score 4. Minimal Assistance (Patient = 75% or more. Needs touching.) Locomotion- Stairs Device used on Stairs Handrail/s Number of Stairs Ascended/ 12 Descended Patient used handrail/support: Yes Stairs FIM Score 4. Minimal Assistance (Patient = 75% or more, touching. 12-14 stairs.) Locomotion- walk/wheelchair Most Frequent Mode of Wheelchair Locomotion: Ambulation Distance 170 Walking FIM Score 4. Minimal Assistance (Patient = 75% or more. Minimum of 150 ft.) Wheelchair Propulsion Distance 300 Wheelchair FIM Score 5. Supervision (Minimum 150 ft. supv./cues or 50 ft. independently.) Eating Eating FIM Score 5. Supervision/Set-Up (Needs help w/ containers, cutting meat, etc.) Dressing-Upper body Patient retrieves clothing No items: Patient applies/removes UE Yes: sling and arm troph prosthesis or orthosis: Upper Body Dressing FIM Score 4. Minimal Assistance (Patient = 75% or more. Needs touching.) Dressing-lower body Patient retrieves clothing No items: Patient applies/removes LE n/a prosthesis or orthosis: Lower Body Dressing FIM Score 2. Maximal Assistance (Patient = 25% or more) - Labs CBC & Chem 7: 09/28/18 05:01 09/27/18 16:59 Labs: Laboratory Results - last 72 hr 09/25/18 09/25/18 09/25/18 12:34 16:02 22:00 WBC RBC Hgb Hct MCV MCH MCHC RDW Plt Count PT INR Glucose POC Glucose 71 130 H 157 H 09/26/18 09/26/18 09/26/18 04:04 08:49 11:58 WBC RBC Hgb Hct MCV MCH MCHC RDW Plt Count PT 19.4 H INR 1.59 H Glucose POC Glucose 133 H 112 H 09/26/18 09/26/18 09/27/18 17:32 21:31 04:08 WBC RBC Hgb Hct MCV MCH MCHC RDW Plt Count PT 22.9 H INR 1.98 H Glucose POC Glucose 187 H 132 H 09/27/18 09/27/18 09/27/18 06:59 16:31 16:53 WBC RBC Hgb Hct MCV MCH MCHC RDW Plt Count PT INR Glucose POC Glucose 101 46 L 46 L 09/27/18 09/27/18 09/28/18 16:59 21:17 05:01 WBC RBC Hgb Hct MCV MCH MCHC RDW Plt Count PT 28.1 H INR 2.59 H Glucose 86 POC Glucose 102 09/28/18 09/28/18 05:01 07:29 WBC 4.5 RBC 4.74 Hgb 14.4 Hct 43.6 MCV 92 MCH 30 MCHC 33 RDW 15.6 H Plt Count 101 L PT INR Glucose POC Glucose 88 Assessment and Plan I69.351 Right dom hemiparesis: Monitor for neuro decline. Continue secondary stroke prevention. Discussed recovery and secondary stroke prevention. Monitor for post-stroke depression and s/s of shoulder-hand syndrome. I69.310 Cognitive deficits after CVA: Improving. MOTORBIKE COURIER did not pickle pumper patient I69.321 Dysphasia: Improving, MOTORBIKE COURIER did not pickle pumper patient I69.322 Dysarthria: Improving Z73.6 ADL dysfunction: OT will work on improving ability to perform ADLs (including assistive devices) to increase independence and decrease caregiver burden and improve functional transfers and mobility training. R26.2 Difficulty walking: PT will work on gait training and proper use of assistive devices and advance as appropriate to use of stairs and outside ambulation on uneven surfaces. R26.81 Unsteadiness on feet: PT will work on improving static and dynamic sitting and standing balance as well as proper use of assistive devices to decrease risk of falls. R26.89 Abnormality of gait: PT will work to improve safety and efficiency of gait through neuromotor training and gait training along with instruction on proper use of assistive devices. M62.81 Muscle weakness: PT & OT will work on strengthening exercises to improve functional strength including mixture of closed and open kinetic chain exercises. R53.81 Debility: PT & OT will work on improving overall functional status to improve participation with ADLs, mobility and social involvement. R53.83 Fatigue: PT & OT will work on improving endurance through aerobic exercises and therapeutic activity while monitoring patients tolerance for activity and vital signs as needed. I10 Hypertension:Monitor BP and adjust medications as needed for normotension Z79.01 Coumadin monitoring: Goal INR 2-3, continue lovenox until therapeutic. Heparin drip d/c'd at admission. E11.9 Diabetes: Hgb A1c 6.7, POC have been elevated. Rec recheck A1c in 3mos. Start Metformin and monitor. Reported hx of cirrhosis (LFT and coags normal) and CKD (BUN/Cr and GFR normal) - monitor closely. DVT ppx: Therapeutic INR - lovenox d/c'd Pain: Continue physical modalities in therapy and pain medications as needed to achieve functional pain control. Sleep: Monitor and address as needed. Bowel: Monitor and address as needed. Appetite: Monitor and address as needed. Discharge planning: Pending therapy progress and care plan meeting. Will continue discussion with therapy team, SW, patient and family. Restrictions/ Precautions: Falls WB status: FWB Functional Hx: ADLs: Independent Cognition: Independent Mobility: independent Barriers to Discharge: Decreased mobility and ability to perform self care, right sided weakness, slight aphasia, balance deficits Estimated Length of Stay: 14-21 days Discharge Destination: Home with family
[2018-09-28] MEDS ORDERED: COUMADIN PO SCH ×3 (17:00)
[2018-09-28] MEDS: FLOMAX PO SCH (22:27)
[2018-09-29 05:59] LABS: INR 2.75 (0.87-1.13)
[2018-09-29] MEDS: HumaLOG SUB-Q SCH ×4 (07:49→22:52)
[2018-09-29] MEDS: ALDACTONE PO SCH (08:46)
[2018-09-29] MEDS: ENTRESTO 24 - 26 MG PO SCH ×2 (08:51→21:23)
[2018-09-29] MEDS: GLUCOPHAGE PO SCH ×2 (09:13→17:18)
[2018-09-29] MEDS: HALFPRIN EC PO SCH (09:13)
[2018-09-29] MEDS: LASIX PO SCH (09:13)
[2018-09-29] MEDS: PEPCID PO SCH ×2 (09:14→21:23)
[2018-09-29] MEDS: TOPROL XL PO SCH (09:16)
[2018-09-29] MEDS: COUMADIN PO SCH (16:45)
[2018-09-29] MEDS: FLOMAX PO SCH (21:23)
[2018-09-30] MEDS: ZOFRAN ODT PO PRN (01:02)
[2018-09-30] MEDS: HumaLOG SUB-Q SCH (07:32)
--- NOTE | 2018-09-30 08:13 | Progress Note ---
Subjective Date of service: 09/30/18 Principal diagnosis: CVA Interval history: 62 yo male with CVA (right sided weakness UE>LE) found to have multiple acute left infarcts and a few smaller right sided infarcts on MRI brain. Echo showed 15-20% EF with moderate concentric hypertrophy and a dilated chamber. Neck CTA showed 90-95% stenosis on left carotid bulb and internal carotid artery. Participating in therapy and making good progress. look to d/c early next week. Tolerating Metformin, will continue to monitor GLU. Recheck BMP next week prior to discharge. INR therapeutic, cont coumadin at 5mg, will monitor and adjust as needed - Pharmacy has decreased to 4mg. Discussed diabetes management, diet, coumadin management and secondary stroke prevention. Reminded to follow up with PCP. All available notes, images, therapy notes, labs and vitals were reviewed. Objective - Exam Narrative Exam: MUSCULOSKELETAL SPECIALTY EXAM Constitutional: Well developed, well nourished, appropriately groomed, RHD EENT: EOMI. Hearing intact to finger rustle, slightly impaired on left (uncertain if prior issue) Respiratory: Clear to ascultation bilaterally, no increased work of breathing. Cardiovascular Regular Rate/ Rhythm, no swelling edema or tenderness in all 4 extremities. All 4 extremities warm. GI : + bowel sounds, soft, NTTP, nondistended INTEGUMENTARY Normal in all 4 extremities other than bruising from IVs Musuloskeletal BUE and BLE normal without defect, crepitus, sublux, effusion, or TTP. Noted LUE hematoma stable - monitor RUE improving 3-/5 decreased aROM. RLE 4-/5, good ROM LUE and LLE 4+/5, good ROM with normal tone. NEURO: Right facial droop, CN 2-12 grossly intact otherwise. Sensation intact in all extremities without extinction. LUE slight intention tremor noted. Mild dysarthria seems resolved, issues are rare now. Naming and repetition intact with some mild word searching during conversation. POSTURE and GAIT: Walking independently, able to navigate stairs. Posture good PSYCH: Alert, orientated x3, affect improved. Insight appears intact. - Constitutional Vitals: Vital Signs - 12hr 09/29/18 09/30/18 09/30/18 22:00 00:19 03:56 Temperature 36.3 C L 36.4 C L Pulse Rate 71 86 Pulse Rate [ 80 Left Radial] Respiratory 17 18 18 Rate Respiratory 17 Rate [Denies] Blood Pressure 130/90 111/68 O2 Sat by Pulse 98 96 95 Oximetry - Allied health notes FIMS assessment as documented by PT/OT/ST: Grooming Patient cleans teeth/dentures: Yes Patient tellez/brushes hair: Yes Patient washes, rinses and Yes dries face: Patient performs (no make-up/ 3/ (75%) shaving): Grooming FIM Score 5. Supervision ([place] applies toothpaste or opens containers.) Toileting Toileting Device Urinal,Commode over Toilet Patient able to: Adjust clothes before,Clean self,Adjust clothes after Patient able to perform: 3/ (100%) Toileting FIM Score 7. Complete Travis (Cleans self and adjusts clothing.) Social interaction/Memory/Problem solving Social Interaction FIM Score 7. Complete Travis (Interacts appropriately. Controls temper.) Memory FIM Score 7. Complete Travis (Remembers people and routines.) Problem Solving FIM Score 7. Complete Travis (Solves complex problems. Self corrects.) Transfers Mode of Locomotion: Walking Bed/Chair/Wheelchair Transfers 7. Complete Travis (Walking: Stands. W/C: FIM Score Locks brakes, pivots.) Toilet Transfers FIM Score 5. Supervision (Needs supervision or cueing.) Patient transferred to: Shower Tub Transfers FIM Score 6. Modified Travis (Needs slide board, grab bar, tub bench.) Shower Transfers FIM Score 5. Supervision (Needs supv. or set-up with device.) Locomotion- Stairs Device used on Stairs Handrail/s Number of Stairs Ascended/ 12 Descended Patient used handrail/support: Yes Stairs FIM Score 5. Supervision (12-14 stairs w/ supv. 4-6 stairs independently.) Locomotion- walk/wheelchair Most Frequent Mode of Wheelchair Locomotion: Ambulation Distance 900 Walking FIM Score 5. Supervision (Minimum 150 ft. supv./cues or 50 ft. independently.) Wheelchair Propulsion Distance 355 Wheelchair FIM Score 6. Modified Travis (Wheels a minimum of 150 ft.) Eating Eating FIM Score 5. Supervision/Set-Up (Needs help w/ containers, cutting meat, etc.) Dressing-Upper body Patient retrieves clothing No items: Patient applies/removes UE Yes: sling and arm troph prosthesis or orthosis: Upper Body Dressing FIM Score 5. Supv./Set-Up ([place] sets out clothes or applies pros./orth.) Dressing-lower body Patient retrieves clothing No items: Patient applies/removes LE n/a prosthesis or orthosis: Lower Body Dressing FIM Score 5. Supv./Set-Up ([place] sets out clothes or applies pros./orth.) - Labs CBC & Chem 7: 09/28/18 05:01 09/27/18 16:59 Labs: Laboratory Results - last 72 hr 09/27/18 09/27/18 09/27/18 16:31 16:53 16:59 WBC RBC Hgb Hct MCV MCH MCHC RDW Plt Count PT INR Glucose 86 POC Glucose 46 L 46 L 09/27/18 09/28/18 09/28/18 21:17 05:01 05:01 WBC 4.5 RBC 4.74 Hgb 14.4 Hct 43.6 MCV 92 MCH 30 MCHC 33 RDW 15.6 H Plt Count 101 L PT 28.1 H INR 2.59 H Glucose POC Glucose 102 09/28/18 09/28/18 09/28/18 07:29 12:40 15:57 WBC RBC Hgb Hct MCV MCH MCHC RDW Plt Count PT INR Glucose POC Glucose 88 91 90 09/28/18 09/29/18 09/29/18 22:09 05:36 08:07 WBC RBC Hgb Hct MCV MCH MCHC RDW Plt Count PT 29.4 H INR 2.75 H Glucose POC Glucose 77 89 09/29/18 09/29/18 09/30/18 16:12 21:26 07:28 WBC RBC Hgb Hct MCV MCH MCHC RDW Plt Count PT INR Glucose POC Glucose 71 104 98 Assessment and Plan I69.351 Right dom hemiparesis: Monitor for neuro decline. Continue secondary stroke prevention. Discussed recovery and secondary stroke prevention. Monitor for post-stroke depression and s/s of shoulder-hand syndrome. I69.310 Cognitive deficits after CVA: Improving. BUILDING ENGINEER did not moss picker patient I69.321 Dysphasia: Improving, BUILDING ENGINEER did not moss picker patient I69.322 Dysarthria: Improving Z73.6 ADL dysfunction: OT will work on improving ability to perform ADLs (including assistive devices) to increase independence and decrease caregiver burden and improve functional transfers and mobility training. R26.2 Difficulty walking: PT will work on gait training and proper use of assistive devices and advance as appropriate to use of stairs and outside ambulation on uneven surfaces. R26.81 Unsteadiness on feet: PT will work on improving static and dynamic sitting and standing balance as well as proper use of assistive devices to decrease risk of falls. R26.89 Abnormality of gait: PT will work to improve safety and efficiency of gait through neuromotor training and gait training along with instruction on proper use of assistive devices. M62.81 Muscle weakness: PT & OT will work on strengthening exercises to improve functional strength including mixture of closed and open kinetic chain exercises. R53.81 Debility: PT & OT will work on improving overall functional status to improve participation with ADLs, mobility and social involvement. R53.83 Fatigue: PT & OT will work on improving endurance through aerobic exercises and therapeutic activity while monitoring patients tolerance for activity and vital signs as needed. I10 Hypertension:Monitor BP and adjust medications as needed for normotension Z79.01 Coumadin monitoring: Goal INR 2-3, continue lovenox until therapeutic. Heparin drip d/c'd at admission. E11.9 Diabetes: Hgb A1c 6.7, POC have been elevated. Rec recheck A1c in 3mos. Start Metformin and monitor. Reported hx of cirrhosis (LFT and coags normal) and CKD (BUN/Cr and GFR normal) - monitor closely. DVT ppx: Therapeutic INR - lovenox d/c'd Pain: Continue physical modalities in therapy and pain medications as needed to achieve functional pain control. Sleep: Monitor and address as needed. Bowel: Monitor and address as needed. Appetite: Monitor and address as needed. Discharge planning: Pending therapy progress and care plan meeting. Will continue discussion with therapy team, SW, patient and family. Restrictions/ Precautions: Falls WB status: FWB Functional Hx: ADLs: Independent Cognition: Independent Mobility: independent Barriers to Discharge: Decreased mobility and ability to perform self care, right sided weakness, slight aphasia, balance deficits Estimated Length of Stay: 14-21 days - d/c next week due to level of improvement Discharge Destination: Home with family
[2018-09-30 08:44] LABS: INR 2.83 (0.87-1.13)
[2018-09-30 08:47] LABS: Alanine Aminotransferase 43 units/L (7-56); Albumin 2.9 g/dL (3.9-5)
[2018-09-30 08:49] LABS: Bilirubin,Direct < 0.2 mg/dL (0-0.2)
[2018-09-30] MEDS: ALDACTONE PO SCH (08:53)
[2018-09-30] MEDS: HALFPRIN EC PO SCH (08:54)
[2018-09-30] MEDS: GLUCOPHAGE PO SCH ×2 (08:54→17:16)
[2018-09-30] MEDS: ENTRESTO 24 - 26 MG PO SCH ×2 (08:54→22:04)
[2018-09-30] MEDS: LASIX PO SCH (08:55)
[2018-09-30] MEDS: PEPCID PO SCH ×2 (08:55→22:03)
[2018-09-30] MEDS: COUMADIN PO SCH (17:15)
[2018-09-30] MEDS: FLOMAX PO SCH (21:00)
[2018-10-01] MEDS: ZOFRAN ODT PO PRN (00:12)
[2018-10-01] MEDS: DESYREL PO PRN (00:17)
[2018-10-01 07:43] LABS: INR 3.17 (0.87-1.13)
[2018-10-01] MEDS: TOPROL XL PO SCH (09:01)
[2018-10-01] MEDS: HALFPRIN EC PO SCH (09:08)
[2018-10-01] MEDS: ALDACTONE PO SCH (09:08)
[2018-10-01] MEDS: PEPCID PO SCH ×2 (09:08→23:32)
[2018-10-01] MEDS: LASIX PO SCH (09:08)
[2018-10-01] MEDS: ENTRESTO 24 - 26 MG PO SCH ×2 (09:09→23:33)
[2018-10-01] MEDS: GLUCOPHAGE PO SCH ×2 (09:09→19:42)
[2018-10-02] MEDS: FLOMAX PO SCH ×2 (00:31→21:13)
[2018-10-02 07:05] LABS: INR 4.12 (0.87-1.13)
[2018-10-02] MEDS: HALFPRIN EC PO SCH (08:26)
[2018-10-02] MEDS: GLUCOPHAGE PO SCH ×2 (08:26→17:43)
[2018-10-02] MEDS: LASIX PO SCH (08:26)
[2018-10-02] MEDS: PEPCID PO SCH ×2 (08:26→21:13)
[2018-10-02] MEDS: TOPROL XL PO SCH ×2 (08:42→10:28)
[2018-10-02] MEDS: ENTRESTO 24 - 26 MG PO SCH ×2 (08:42→21:13)
[2018-10-02] MEDS: ALDACTONE PO SCH (08:42)
[2018-10-02] MEDS ORDERED: WARFARIN PO SCH (17:00)
[2018-10-03 06:02] LABS: INR 2.16 (0.87-1.13)
[2018-10-03] MEDS: TOPROL XL PO SCH (08:07)
[2018-10-03] MEDS: ENTRESTO 24 - 26 MG PO SCH (08:07)
[2018-10-03] MEDS: LASIX PO SCH (08:07)
[2018-10-03] MEDS: ALDACTONE PO SCH (08:08)
[2018-10-03] MEDS: GLUCOPHAGE PO SCH (09:06)
[2018-10-03] MEDS: HALFPRIN EC PO SCH (09:06)
[2018-10-03] MEDS: PEPCID PO SCH (09:07)
[2018-10-03 12:12] VITALS: BP 100/68
[2018-10-03 12:30] LABS: BUN/Creatinine Ratio 23; Blood Urea Nitrogen 27 mg/dL (9-20); Calcium 9.6 mg/dL (8.4-10.2); Hemolysis Index 4
--- NOTE | 2018-10-03 12:43 | Discharge Summary ---
Providers - Providers Date of Admission: 09/22/18 18:49 Date of discharge: 10/03/18 Attending physician: KALEY CIFUENTES III, MD 09/22/18 21:45 Consult to Dietitian/Nutrition [CONS] Routine Physician Instructions: Reason For Exam: Reason for Consult: Diet education Occupational Therapy Evaluate and Treat [CONS] Routine Comment: Reason For Exam: Eval Treat CVA Physical Therapy Evaluation and Treat [CONS] Routine Comment: Reason For Exam: Eval Treat CVA Speech Therapy Evaluation and Treat [CONS] Routine Reason For Exam: Eval Treat CVA 09/22/18 21:51 Consult to Case Management [CONS] Routine Services Needed at Discharge: Home Health Services Notified:: cm notified 09/22/18 22:12 Consult to Dietitian/Nutrition [CONS] Routine Physician Instructions: Reason For Exam: Reason for Consult: Diet education Primary care physician: PCP: Chilango Segovia MD Surveillance Camera Technician: Lev Oconnor MD Hospitalization Reason for admission: CVA, Right hemiparesis Condition: Good Pertinent studies: MRI brain scan consistent with multiple acute infarcts anomaly in the left cerebral hemisphere with a few small infarcts noted on the right. Echocardiogram showed an ejection fraction of 15-20% with severely decreased left ventricular function, moderate concentric left ventricular hypertrophy and moderately dilated left ventricle. Neck CTA showed a 90-95% stenosis involving the left carotid bulb and internal carotid artery along with a left thyroid nodule measuring 17 mm. Hospital course: Patient was admitted with symptoms consistent with CVA on October 17. On workup he was found to have primarily left-sided infarcts with some scattered right infarcts as well. Further workup revealed left carotid artery stenosis of 90- 95%. Upon consultation with cardiology and vascular, the decision was made to proceed with nonoperative management and due to the embolic nature of the infarcts patient was placed on a heparin drip followed by transitioning to Coumadin. Target INR is 2-3. Patient was transferred to inpatient rehabilitation unit for further rehabilitation and made very quick progress. He initially had issues with bowel and bladder management but this recovered quickly. A1c was elevated at 6.7% and blood sugar checks were frequently 200+. He was started on low-dose metformin which he may be able to transition off of pending home diet and exercise. Spoke with patient and prior to discharge and reminded them to follow up with PCP and clicking machine operator for management of his blood pressure, Coumadin management, and diabetes management. Patient is currently ambulating without assistive device and is doing very well. He does have a single-point cane at home and has used a cane without issue and can continue to use it at home if needed. We will have him follow-up with outpatient physical therapy and occupational therapy to continue his recovery. Patient and were given instructions to continue taking medications for secondary stroke prevention. Also told to go to the ER if he experienced any stroke like symptoms in the future. They're both aware that he is still at risk for a recurrent stroke. Disposition: DC-01 TO HOME OR SELFCARE Time spent for discharge: >30 minutes spent with patient and counseling and coordinating care - Discharge Diagnoses (1) Acute right-sided weakness Status: Acute (2) CVA (cerebral vascular accident) Status: Acute Qualifiers: CVA mechanism: embolism Precerebral and cerebral artery: carotid artery Laterality of affected vessel: left Qualified Code(s): I63.132 - Cerebral infarction due to embolism of left carotid artery (3) Chronic hypertension Status: Chronic (4) Left carotid artery stenosis Status: Acute (5) History of cirrhosis Status: Chronic (6) Hx of chronic kidney disease Status: Chronic (7) Nonischemic cardiomyopathy Status: Chronic (8) Rheumatoid arthritis Status: Chronic Core Measure Documentation - Palliative Care Palliative Care/ Comfort Measures: Not Applicable - Core Measures Any of the following diagnoses?: heart failure, stroke - Heart Failure Discharge Requirements DYANA/ARB for LVSD if EF <40%: Yes Beta jeffry at discharge: Yes - Stroke Discharge Requirements Statin for LDL = or >70 mg/dl on DC: Yes Anticoag for atrial fib/atrial flutter: Not Applicable Antithrombotic for ischemic stroke: Yes Exam - Physical Exam Narrative exam: MUSCULOSKELETAL SPECIALTY EXAM Constitutional: Well developed, well nourished, appropriately groomed, RHD EENT: EOMI. Hearing intact to finger rustle, slightly impaired on left (uncertain if prior issue) Respiratory: Clear to ascultation bilaterally, no increased work of breathing. Cardiovascular Regular Rate/ Rhythm, no swelling edema or tenderness in all 4 extremities. All 4 extremities warm. GI : + bowel sounds, soft, NTTP, nondistended INTEGUMENTARY Normal in all 4 extremities other than bruising from IVs Musuloskeletal BUE and BLE normal without defect, crepitus, sublux, effusion, or TTP. Noted LUE hematoma stable - monitor RUE improving 3-/5 decreased aROM. RLE 4-/5, good ROM LUE and LLE 4+/5, good ROM with normal tone. NEURO: Right facial droop, CN 2-12 grossly intact otherwise. Sensation intact in all extremities without extinction. Naming and repetition intact with some mild word searching during conversation. POSTURE and GAIT: Walking independently, able to navigate stairs. Posture good PSYCH: Alert, orientated x3, affect improved. Insight appears intact. - Constitutional Vitals: Temp Pulse Resp BP Pulse Ox 36.6 C 71 18 100/68 98 10/03/18 12:00 10/03/18 12:00 10/03/18 12:00 10/03/18 12:00 10/03/18 12:00 - Allied Health Allied health notes reviewed: nursing, PT, OT Plan Activity: advance as tolerated, fall precautions Weight Bearing Status: Full Weight Bearing Diet: diabetic Follow up with: PRIMARY CARE, [Primary Care Provider] - 7 Days Lev Oconnor MD [Other] - 7 Days (Please follow up for coumadin management. s/p CVA from L carotid artery embolism. ) Forms: Warfarin Discharge Instruction Prescriptions: AtorvaSTATin [Lipitor] 40 mg PO QHS #30 tablet Tamsulosin [Flomax] 0.4 mg PO QHS #30 capsule Aspirin EC [Aspirin Enteric Coated TAB] 81 mg PO QDAY #30 tablet. Famotidine [Pepcid] 20 mg PO BID #60 tablet Furosemide [Lasix TAB] 40 mg PO QDAY #30 tablet metFORMIN [Glucophage] 500 mg PO BIDDIAB #60 tablet Metoprolol Xl [Metoprolol SUCCINATE ER TAB] 50 mg PO QDAY #30 tablet Sacubitril/Valsartan [Entresto 24 - 26 mg] 4 each PO BID #60 tablet Spironolactone [Aldactone] 25 mg PO QDAY #30 tablet Warfarin [Coumadin] 3 mg PO DAILY@1700 #30 tablet Other Discharge Orders: Occupational Therapy (Amb) Location: None Selected Physicial Therapy (Amb) Location: None Selected
[2018-10-03] MEDS ORDERED: COUMADIN PO SCH (17:00)
== END 2018-10-03 13:56 | disposition home or self-care (01) | DRG 65 ==
LOC: 3A 17:32 → UNDOADMIN 17:32 → 3B 18:49
PROVIDERS: ADMIT Physical Medicine & Rehabilitation; ATTEND Physical Medicine & Rehabilitation
PROC: 3E0234Z Introduction of Serum, Toxoid and Vaccine into Muscle, Percutaneous Approach (ICD-10-PCS; principal; 2018-09-23)
DX: I63.132 Cerebral infarction due to embolism of left carotid artery (principal); I69.351 Hemiplegia and hemiparesis following cerebral infarction affecting right dominant side; I42.8 Other cardiomyopathies; I13.0 Hypertensive heart and chronic kidney disease with heart failure and stage 1 through stage 4 chronic kidney disease, or unspecified chronic kidney disease; K74.60 Unspecified cirrhosis of liver; N18.9 Chronic kidney disease, unspecified; M06.9 Rheumatoid arthritis, unspecified; R47.81 Slurred speech; I50.9 Heart failure, unspecified; Z82.49 Family history of ischemic heart disease and other diseases of the circulatory system; Z87.891 Personal history of nicotine dependence; Z79.82 Long term (current) use of aspirin; Z79.899 Other long term (current) drug therapy; R47.02 Dysphasia; R47.1 Dysarthria and anarthria; Z23 Encounter for immunization
CPT/HCPCS: 36415; 80048; 80076; 82947; 82962; 85025; 85027; 85610; 90471; 90732; G0378; A9270-GY; G0009; J1650; J1815; Q0162